=== PATIENT | male | born 1985 ===

== ENCOUNTER 2017-05-31 11:54 | Emergency (ER) | payer BC ==
[2017-05-31 12:22] VITALS: BP 107/71
--- NOTE | 2017-05-31 12:31 | UC ---
Hand/Wrist HPI - HPI Summary HPI Summary: Stung L hand by flying insect a couple hours ago. Has redness and increasing swelling in L hand. Hx of large local reactions in the past, denies fainting, hives, vomiting, or intubation from stings before. Has been put on antibiotics in the past because of redness and streaking. Took 2 benadryl before coming here. - History Of Current Complaint Hx Obtained From: Patient ?: No Onset/Duration: Sudden Onset Severity Initially: Mild Severity Currently: Mild Character Of Pain: Aching Alleviating: Rest, Ice Associated Signs And Symptoms: Positive: Swelling, Redness <Emma Villa - Last Filed: 05/31/17 12:27> <Katelynn Rodriguez - Last Filed: 05/31/17 13:41> - History Of Current Complaint Chief Complaint: UCSkin Stated Complaint: BEE STING Time Seen by Provider: 05/31/17 12:26 - Allergies/Home Medications Allergies/Adverse Reactions: Allergies Allergy/AdvReac Type Severity Reaction Status Date / Time No Known Allergies Allergy Verified 05/31/17 12:22 PMH/Surg Hx/FS Hx/Imm Hx - Additional Past Medical History Additional PMH: denies immunosuppression Previously Healthy: Yes - Surgical History Surgical History: Yes Surgery Procedure, Year, and Place: left knee - Family History Known Family History: Negative: Blood Disorder - Social History Alcohol Use: Rare Substance Use Type: None Smoking Status (MU): Never Smoked Tobacco <Emma Villa - Last Filed: 05/31/17 12:27> Review of Systems Constitutional: Negative Skin: Other - L hand red and swelling Eyes: Negative ENT: Negative Respiratory: Negative Cardiovascular: Negative Gastrointestinal: Negative Genitourinary: Negative Motor: Negative Neurovascular: Negative Musculoskeletal: Negative Neurological: Negative Psychological: Negative All Other Systems Reviewed And Are Negative: Yes <Emma Villa - Last Filed: 05/31/17 12:27> Physical Exam Triage Information Reviewed: Yes Appearance: Well-Appearing, No Pain Distress, Well-Nourished Vital Signs: Initial Vital Signs Temp 98.3 F 05/31/17 12:18 Pulse 56 05/31/17 12:18 Resp 16 05/31/17 12:18 BP 107/71 05/31/17 12:18 Pulse Ox 99 05/31/17 12:18 Vital Signs Reviewed: Yes Eye Exam: Normal Eyes: Positive: Conjunctiva Clear ENT Exam: Normal ENT: Positive: Normal ENT inspection, Hearing grossly normal, Pharynx normal, TMs normal Dental Exam: Normal Neck exam: Normal Neck: Positive: Supple, Nontender, No Lymphadenopathy Respiratory Exam: Normal Respiratory: Positive: Chest non-tender, Lungs clear, Normal breath sounds, No respiratory distress, No accessory muscle use Cardiovascular Exam: Normal Cardiovascular: Positive: RRR, No Murmur Musculoskeletal Exam: Normal Musculoskeletal: Positive: Strength Intact, ROM Intact Neurological Exam: Normal Neurological: Positive: Alert Psychological Exam: Normal Skin Exam: Other - diffuse redness and swelling L hand <Emma Villa - Last Filed: 05/31/17 12:27> Vital Signs: Initial Vital Signs Temp 98.3 F 05/31/17 12:18 Pulse 56 05/31/17 12:18 Resp 16 05/31/17 12:18 BP 107/71 05/31/17 12:18 Pulse Ox 99 05/31/17 12:18 <Katelynn Rodriguez - Last Filed: 05/31/17 13:41> Hand/Wrist Course/Dx - Differential Dx/Diagnosis Provider Diagnoses: L hand insect sting <Emma Villa - Last Filed: 05/31/17 12:27> Discharge <Emma Villa - Last Filed: 05/31/17 12:27> <Katelynn Rodriguez - Last Filed: 05/31/17 13:41> - Discharge Plan Condition: Stable Disposition: HOME Prescriptions: predniSONE TAB* [Deltasone TAB*] 50 mg PO DAILY #5 tab Patient Education Materials: Insect Bite or Sting (ED) Referrals: No Primary Care Phys,NOPCP [Primary Care Provider] - Additional Instructions: Come back right away if you have severe swelling, redness, or drainage from the area. Attestation Statement User Type: Provider - I was available for consult. This patient was seen by the FAMILIA. The patient was not presented to, seen by, or examined by me. -Kaye <Katelynn Rodriguez - Last Filed: 05/31/17 13:41>
== END 2017-05-31 12:37 | disposition home or self-care (01) ==
LOC: UCEAST 11:54
DX: T63.481A Toxic effect of venom of other arthropod, accidental (unintentional), initial encounter (principal); L53.9 Erythematous condition, unspecified; R22.32 Localized swelling, mass and lump, left upper limb
CPT/HCPCS: 99212; G0463

== ENCOUNTER 2018-04-09 13:47 | Emergency (ER) | payer BC ==
[2018-04-09 13:57] VITALS: BP 117/66
--- NOTE | 2018-04-09 14:07 | UC ---
Throat Pain/Nasal Ishmael HPI - HPI Summary HPI Summary: Patient presents with an unremarkable past medical history. He presents with three day onset worsening sore throat, with swollen tonsils and pain with swallowing. He states he is able to eat, drink and handle his own secretions. He denies any fever, chills, chest pain, or shortness of breath. - History of Current Complaint Chief Complaint: UCGeneralIllness Stated Complaint: SORE THROAT Time Seen by Provider: 04/09/18 13:57 Hx Obtained From: Patient Onset/Duration: Gradual Onset, Lasting Days Severity: Worse Since: - this morning. Pain Intensity: 3 Associated Signs & Symptoms: Positive: Negative - Epiglottits Risk Factors Epiglottis Risk Factors: Negative - Allergies/Home Medications Allergies/Adverse Reactions: Allergies Allergy/AdvReac Type Severity Reaction Status Date / Time No Known Allergies Allergy Verified 04/09/18 14:00 PMH/Surg Hx/FS Hx/Imm Hx Previously Healthy: Yes - Surgical History Surgical History: Yes Surgery Procedure, Year, and Place: left knee - Family History Known Family History: Positive: None Negative: Blood Disorder - Social History Occupation: Employed Full-time Lives: Alone Alcohol Use: Rare Substance Use Type: Marijuana Smoking Status (MU): Never Smoked Tobacco Review of Systems Constitutional: Negative Skin: Negative Eyes: Negative ENT: Sore Throat Respiratory: Negative Cardiovascular: Negative Gastrointestinal: Negative Genitourinary: Negative Motor: Negative Neurovascular: Negative Musculoskeletal: Negative Neurological: Negative Psychological: Negative Is Patient Immunocompromised?: No All Other Systems Reviewed And Are Negative: Yes Physical Exam Triage Information Reviewed: Yes Appearance: Well-Appearing Vital Signs: Initial Vital Signs Temp 97.9 F 04/09/18 13:53 Pulse 83 04/09/18 13:53 Resp 18 04/09/18 13:53 BP 117/66 04/09/18 13:53 Pulse Ox 98 04/09/18 13:53 Vital Signs Reviewed: Yes Eye Exam: Normal ENT: Positive: Pharyngeal erythema, Tonsillar swelling, Tonsillar exudate Dental Exam: Normal Neck exam: Normal Neck: Positive: 1 Respiratory Exam: Normal Cardiovascular Exam: Normal Abdominal Exam: Normal Musculoskeletal Exam: Normal Neurological Exam: Normal Psychological Exam: Normal Skin Exam: Normal Throat Pain/Nasal Course/Dx - Course Course Of Treatment: Patient presents with clinical findings consistent with strep throat, and was treated with [id number] mg qid x 1 days. - Differential Dx/Diagnosis Differential Diagnosis/HQI/PQRI: Other - strep throat Provider Diagnoses: strep throat Discharge - Sign-Out/Discharge Documenting (check all that apply): Discharge/Admit/Transfer - Discharge Plan Condition: Stable Disposition: HOME Prescriptions: Penicillin VK 500 MG TAB(NF) [Penicillin VK 500 mg Tab] 500 mg PO QID #40 tab Patient Education Materials: Pharyngitis (ED), Strep Throat (DC) Referrals: No Primary Care Phys,NOPCP [Primary Care Provider] - - Billing Disposition and Condition Condition: STABLE Disposition: HOME
== END 2018-04-09 14:13 | disposition home or self-care (01) ==
LOC: UCEAST 13:47
DX: J02.0 Streptococcal pharyngitis (principal)
CPT/HCPCS: 99211; G0463